=== PATIENT | female | born 1960 | race Caucasian/White ===

== ENCOUNTER 2020-04-01 16:37 | Emergency (ER) | payer BC ==
[2020-04-01] MEDS ORDERED: Lidocaine 1% 30 ML SDV INJECT ONE (16:44)
--- NOTE | 2020-04-01 17:19 | EDM.PDOC ---
ED HPI GENERAL MEDICAL PROBLEM - General Stated Complaint: LACERATION Time Seen by Provider: 04/01/20 17:00 Source of Information: Reports: Patient History Limitations: Reports: No Limitations - History of Present Illness INITIAL COMMENTS - FREE TEXT/NARRATIVE: Patient comes emergency department today with complaints of a laceration on her left hand. Just prior to arrival the patient was at home when she was cleaning some glass doors in the sink when she accidentally had a rim of a glass that was broken and cut the webbing between her fourth and fifth finger. This happened just prior to arrival. Her last tetanus immunization was in 2015. She denies any change in the functionality of her hand. She denies any paresthesias. No Covid exposure no Covid symptoms. - Related Data Allergies Allergy/AdvReac Type Severity Reaction Status Date / Time venom-honey bee Allergy Fainting Verified 02/23/16 09:40 [bee venom (honey bee)] green peppers Allergy Swelling Uncoded 02/23/16 09:40 Home Meds: Home Meds . [No Known Home Meds] 10/10/15 [History] Past Medical History - Past Health History Medical/Surgical History: Denies Medical/Surgical History ED ROS GENERAL - Review of Systems Review Of Systems: Comprehensive ROS is negative, except as noted in HPI. ED EXAM, SKIN/RASH Exam: See Below Exam Limited By: No Limitations General Appearance: Alert, WD/WN, No Apparent Distress Respiratory/Chest: No Respiratory Distress Cardiovascular: Normal Peripheral Pulses, Regular Rate, Rhythm Peripheral Pulses: 2+: Radial (L), Radial (R) Extremities: Normal Range of Motion, Non-Tender, No Pedal Edema, Normal Capillary Refill. No: Normal Inspection (Examination is isolated to the left hand. Between the fourth and fifth finger on the webbing there is a 1.5 cm laceration gaping in the webbing of the finger. This is into the subcutaneous tissue. Patient is able to flex and extend at the MCP PIP and DIP joints of the left hand appropriately in all areas. Rest of the hand is atraumatic.) Neurological: Alert, Oriented ED SKIN PROCEDURES - Laceration/Wound Repair Left Hand Appearance: Subcutaneous Distal NVT: Neuro & Vascular Intact Anesthetic Type: Local Local Anesthesia - Lidocaine (Xylocaine): 1% Plain Local Anesthetic Volume: 4cc Skin Prep: Chlorhexidine (Hibiciens), Saline Saline Irrigation (cc's): 200 Exploration/Debridement/Repair: Wound Explored, In a Bloodless Field, Explored to Base Closed with: Sutures Lac/Wound length In cm: 1.5 Suture Size: 4-0 Suture Type: Nylon, Interrupted Sterile Dressing Applied: Provider Tetanus Status Addressed: Yes Course - Orders/Labs/Meds Meds: Medications Discontinued Medications Generic Name Dose Route Start Last Admin Trade Name Carla PRN Reason Stop Dose Admin Lidocaine HCl 30 ml 04/01/20 16:44 Xylocaine-Mpf 1% INJECT 04/01/20 16:45 ONETIME ONE Departure - Departure Time of Disposition: 17:16 Disposition: Home, Self-Care 01 Clinical Impression: Laceration of hand Qualifiers: Encounter type: initial encounter Laterality: left Qualified Code(s): S61.412A - Laceration without foreign body of left hand, initial encounter - Discharge Information Instructions: Laceration Care, Adult, [id number], Sutures, Vince, or Adhesive Wound Closure, [id number] Referrals: Norma Hector PA-C [Primary Care Provider] - Additional Instructions: Cleanse the wound twice daily with soap and water. Bacitracin bandage until healed. Watch for signs of infection. Running water over the laceration is fine. No soaking your hand in water. Sutures out in 7 days. Return to the ED if new or worsening symptoms. Follow up with PCP in 7 days to get sutures out.
[2020-04-01 21:01] VITALS: BP 138/77; PULSE 89
== END 2020-04-01 18:00 | disposition home or self-care (01) ==
LOC: VM.ED 16:37
DX: S61.412A Laceration without foreign body of left hand, initial encounter (principal); Z91.030 Bee allergy status; Z91.048 Other nonmedicinal substance allergy status; W25.XXXA Contact with sharp glass, initial encounter; Y92.009 Unspecified place in unspecified non-institutional (private) residence as the place of occurrence of the external cause
CPT/HCPCS: 12001; 99282; 99283; J2001